=== PATIENT | male | born 1970 | race Caucasian/White ===

== ENCOUNTER 2020-06-14 15:21 | Emergency (ER) | payer OTHER ==
[~2020-06-14] VITALS: Ht 177.8 cm; Wt 111.1 kg
[~2020-06-14 15:21] MED LIST: ALL DAY ALLERGY10 M3 PO; AMARYL4 MG PO; AMLODIPINE BESY10 MG PO; ARTIFICIAL TEAR15 M2 OP; ASPIRIN81 M2 PO; CENTRUM SILVER1 EAC4 PO; FENOFIBRATE160 MG PO; FISH OIL 1,001000 M2 PO; GLUMETZA500 PO; LANTUS100 UNIT/M SUBQ; LIPITOR80 MG PO; LOSARTAN-HCTZ1 EAC3 PO; PREDNISONE 20 M20 MG PO; SERTRALINE HCL50 MG PO; TOPROL XL100 MG PO; VALACYCLOVIR500 MG PO; VICTOZA0.6 MG/0.1 SUBQ; VITAMINC500 PO
[2020-06-14] MEDS ORDERED: TRULICITY0.75 MG/0. SUBQ (15:28)
[2020-06-14] MEDS ORDERED: NORCO 5-325 TA1 EAC2 PO (16:29)
[2020-06-14 16:59] VITALS: BP 127/89
== END 2020-06-14 17:00 | disposition home or self-care (01) ==
LOC: M.ERS 15:21
DX: S82.001A Unspecified fracture of right patella, initial encounter for closed fracture (principal); I10 Essential (primary) hypertension; E11.9 Type 2 diabetes mellitus without complications; E78.00 Pure hypercholesterolemia, unspecified; Z79.899 Other long term (current) drug therapy; Z79.4 Long term (current) use of insulin; Z88.8 Allergy status to other drugs, medicaments and biological substances; Z90.49 Acquired absence of other specified parts of digestive tract; W18.39XA Other fall on same level, initial encounter; Y93.89 Activity, other specified; Y92.89 Other specified places as the place of occurrence of the external cause; Y99.8 Other external cause status

== ENCOUNTER → 2020-06-27 | Outpatient (CLI) | payer OTHER ==
[~2020-06-27] MED LIST changes: +NORCO 5-325 TA1 EAC2 PO; +TRULICITY0.75 MG/0. SUBQ
== END ==
LOC: M.LAB 09:22
PROVIDERS: ATTEND Orthopaedic Surgery
DX: Z01.812 Encounter for preprocedural laboratory examination (principal); S82.091A Other fracture of right patella, initial encounter for closed fracture; Z20.828 Contact with and (suspected) exposure to other viral communicable diseases; X58.XXXA Exposure to other specified factors, initial encounter; Y92.89 Other specified places as the place of occurrence of the external cause; Y93.89 Activity, other specified; Y99.8 Other external cause status

== ENCOUNTER → 2020-06-30 | Outpatient (CLI) | payer OTHER ==
[2020-06-30 08:29] LABS: POTASSIUM 4.8 mmol/L (3.5-5.1)
== END ==
LOC: M.LAB 06:04
PROVIDERS: ATTEND Anesthesiology
DX: E87.6 Hypokalemia (principal); E11.9 Type 2 diabetes mellitus without complications